=== PATIENT | male | born 1970 | race Caucasian/White ===

== ENCOUNTER 2024-01-06 16:56 | Inpatient (IN) | payer OTHER, SELFPAY ==
[2024-01-06] VITALS (9 sets, daily range): BP systolic 133–155; BP diastolic 72–86; PULSE 96–117; RESP 14–20; TEMP 36.4–37.6; O2SAT 96–99; BMI 31.3; BMI 31.0
--- NOTE | 2024-01-06 17:20 | EX.ED.VIS.UR ---
HPI HPI - URI History of Present Illness Chief Complaint: Chest Other Informant: patient and spouse/S.O. Onset/Context/Timing Onset: Weeks Context: Gradual Onset Timing: Continuous Current Severity: Mild Maximum Severity: Mild Narrative Narrative: 53-year-old male history of prior kidney stone hypertension. Recently was treated for pneumonia by the nurse practitioner Carmenza Mcnally at the local [facility]. Patient was on Levaquin which she finished on Friday. States has been feeling better. Initially had a chest x-ray with a negative CAT scan with IV contrast. Found a upper lobe pneumonia. Says he feels a lot better. Today the CAT scan I called him and told him to go to the nearest ER. He does not know the CAT scan results. The doctor's office is now close have already tried to reach him to get the results. We also looked on my chart on the patient's computer with him and it has not been officially transcribed so there is no results on the computer. Prior similar symptoms: Yes Recent Illness/Hospitalization: No ROS ROS ED ROS Narrative Cough. Constitutional Constitutional ED: Denies chills or fever(s) Eyes Eyes: Denies blurry vision ENT ENT ED: Denies ear pain Cardiovascular Cardiovascular: Denies chest pain Respiratory/Chest Respiratory/Chest: Reports cough Gastrointestinal Gastrointestinal: Denies abdominal pain Genitourinary Genitourinary ED: Denies dysuria or hematuria Musculoskeletal Musculoskeletal: Denies arthralgias Integumentary Denies abscess Neurologic Neurologic: Denies headache(s) Psychiatric Psychiatric: Denies anxiety or depression Endocrine Endocrinology: Denies cold intolerance Hematologic/Lymphatic Hematologic/Lymphatic: Denies easy bleeding or easy bruising Allergic/Immunologic Allergic/Immunologic ED: Denies mouth swelling, tongue swelling or urticaria PFSH PFSH Home Medications ?Medication ?Instructions ?Recorded ?Last Taken ?Type omeprazole 20 mg capsule,delayed 20 mg PO DAILY 11/23/15 Unknown History release oxycodone-acetaminophen 5 mg-325 1 - 2 tab PO Q4H PRN PRN Pain #20 11/23/15 Unknown Rx mg tablet tabs tamsulosin 0.4 mg capsule 0.4 mg PO DAILY 5 days 11/23/15 Unknown Rx valsartan 160 1 tab PO DAILY 11/23/15 Unknown History mg-hydrochlorothiazide 25 mg tablet (Diovan HCT) Allergy/AdvReac Type Severity Reaction Status Date / Time prednisone Allergy Mild Nausea/Vom/ Verified 01/06/24 16:57 Diarrhea acetaminophen (From Vicodin) AdvReac Hives Verified 01/06/24 16:57 hydrocodone (From Vicodin) AdvReac Hives Verified 01/06/24 16:57 Social History Smoking Status: Never smoker EXAM Physical Exam Narrative Exam Narrative: 53-year-old male no acute distress vital signs stable. Temperature nine 9.6. Pulse ox 96% on room air no hypoxia. H EENT exam unremarkable. Mytrex membranes. Neck nontender no lymphadenopathy. Patient does not look septic or toxic. No distress. at bedside. Lungs clear to auscultation bilaterally. No rales, rhonchi or wheezing. Equal symmetric. Heart tachycardic 110 no murmur. Chest wall ribs nontender. Abdomen soft nontender. Back nontender. Moving all 4 extremities. Nontender no edema. Normal motor strength and range of motion. Patient awake alert no focal motor deficits. Answering questions and following commands. Const Vital Signs: 01/06/24 16:58 01/06/24 17:00 01/06/24 17:16 Temperature 99.6 F H 99.6 F H Temperature Source Oral Oral Pulse Rate 117 H 117 H Respiratory Rate 20 H 20 H Respiratory Effort Normal Non-Labored Respiratory Depth Normal Respiratory Pattern Normal Blood Pressure 155/84 H 155/84 H Blood Pressure Mean 107 107 Pulse Ox 96 96 Oxygen Delivery Method Room Air Room Air Room Air 01/06/24 18:00 Temperature 99.5 F H Temperature Source Oral Pulse Rate 102 H Respiratory Rate 18 Respiratory Effort Respiratory Depth Respiratory Pattern Blood Pressure 136/76 H Blood Pressure Mean 96 Pulse Ox 96 Oxygen Delivery Method Room Air Positive well nourished and well developed; Negative for cachectic or contractures General Appearance ED: well developed and NAD; Negative for cachectic, contractures, cyanotic, diaphoretic or pallor Nutritional Appearance: Negative for cachectic HEENT Reports moist mucous membranes normocephalic and atraumatic Throat: posterior oropharynx normal Eyes PERRL and EOMs intact bilaterally General Eye ED: Negative for pale conjunctiva Neck no lymphadenopathy, supple, no meningeal signs and no JVD Resp normal respiratory effort and clear to auscultation bilaterally Effort and Inspection: Negative for retractions Auscultation: Negative for rales, rhonchi, wheezes or diminished lung sounds Cardio S1 normal heart sound, S2 normal heart sound and no murmurs Rate: tachycardic Rhythm: regular rhythm GI non-distended and no masses Inspection: Negative for abdominal distention Palpation: soft; Negative for tender or guarding Back/Spine no CVA tenderness and normal ROM Extremity normal to inspection and full ROM General Extremety ED: Negative for cyanosis or tenderness General Extremity: Negative for cyanosis Neuro oriented x3 and CN's II-XII intact bilaterally Sensorium / Orientation: oriented to person, oriented to place and oriented to time Motor Exam: strength 5/5 throughout Psych mental status grossly normal Skin General Skin Exam: Negative for jaundice or pallor Lesions: no lesions Rashes: no rashes MDM MDM MDM Narrative Medical decision making narrative: 53-year-old male status post pneumonia on CAT scan and chest x-ray several weeks ago. Repeat CAT scan today had some type abnormal finding which we do not have the results and we cannot find it on my chart as of yet. Screening labs to be obtained. Repeat exam patient is doing well at 6:20 PM. I went over the x-ray results with him. He has a right upper lung abscess/pneumonia. Our interventional radiologist is not available tomorrow. I have already spoken the [facility] working on a transfer. The patient be started on IV Zosyn. Oral potassium. I spoke to our hospitalist who also spoke to our psychologist developmental. They are comfortable the patient be admitted here. Started on IV antibiotics. If he does not improve then they can either consider a drain or CT surgery consultation but he does not need to be transferred at this time. I have discussed all this with the patient and significant other bedside. Patient prefers to stay and not be transferred so he is comfortable with the plan. History & Record Review Discussion w/independent historian: Patient Additional record(s) reviewed:: Prior inpatient record, Prior outpatient record and Prior ED visit Lab Data Attestation: I reviewed the patient's lab results. Lab results narrative: CBC shows white count 13. H&H 10.32. Platelets 514. No old labs available for comparison. Electrolytes show potassium 2.9. Gap 7. BUN of 20 creatinine 0.9. Glucose 113. Chest x-ray right upper lobe lung abscess. Labs: Laboratory Results - last 24 hr 01/06/24 17:45 WBC 13.0 H RBC 3.56 L Hgb 10.8 L Hct 32.0 L MCV 89.9 MCH 30.3 MCHC 33.8 RDW Std Deviation 42.4 RDW Coeff of [place] 12.8 Plt Count 514 H MPV 8.7 Immature Gran % (Auto) 0.500 Neut % (Auto) 68.5 Lymph % (Auto) 22.3 [place] % (Auto) 7.3 Eos % (Auto) 1.0 Baso % (Auto) 0.4 Absolute Neuts (auto) 8.9 H Absolute Lymphs (auto) 2.90 Nucleated RBC % 0 Sodium 137 Potassium 2.9 L Chloride 102 Carbon Dioxide 28.0 Anion Gap 7 BUN 20 H Creatinine 0.99 Estim Creat Clear Calc 101.79 Est GFR (MDRD) Af Amer 101 Est GFR (MDRD) Non-Af 84 BUN/Creatinine Ratio 20.2 H Glucose 113 H Calcium 9.0 Radiography Chest X-Ray - ED: 2 View, Read by ED Physician, Normal, Heart, Mediastinum, Bony Structures and Right Infiltrate (Right upper lobe pneumonia/lung abscess. Air-fluid level.) Diagnostic Testing: Clinical Impression(s) from Imaging Studies Chest X-Ray 01/06/24 17:48 IMPRESSION: Findings consistent with right upper lobe pneumonia with possible pneumatocele or abscess. CT recommended for further evaluation. Electronically Signed: Bryan Calloway MD at 18:19 EST Reading Location ID and State: [address] [place] [address] Tel , Service support , Chest x-ray, 2 views,, AP and lateral, interpreted by myself and the radiologist shows right upper lobe pneumonia. Suspect abscess with air-fluid level. Normal cardiac silhouette. Discharge Plan Triage Chief Complaint: Chest Other Other Complaint: Shortness of Breath ED Provider: Chris Montes De Oca Dx/Rx/DC Orders Clinical Impression: Abscess of right lung with pneumonia, Leukocytosis, Acute hypokalemia Prescriptions: No Action omeprazole 20 MG capsule 20 mg PO DAILY valsartan-hydrochlorothiazide [Diovan HCT] 1 TABLET tablet 1 tab PO DAILY oxycodone-acetaminophen 1 TABLET tablet 1 - 2 tab PO Q4H PRN PRN (Reason: Pain) Qty: 20 0RF tamsulosin 0.4 MG capsule 0.4 mg PO DAILY 5 Days 0RF Primary Care Provider: Mendel Rashid Referrals: Mendel Rashid MD [Primary Care Provider] - Print Language: Luxembourger Disposition Disposition: Acute Care [facility]
--- NOTE | 2024-01-06 17:48 | RAD_ITS ---
STUDY: X-RAY CHEST REASON FOR EXAM: Male, 53 years old. s/p pneumonia TECHNIQUE: PA and lateral COMPARISON: None. FINDINGS: Diffuse infiltration is noted in the right upper lobe with possible cavitation and air-fluid level. There is no demonstrated pleural abnormality. Normal size heart. Normal mediastinum and cadence. Normal visualized pulmonary arteries. Normal visualized aortic arch and descending thoracic aorta. Dorsal spine demonstrates degenerative change. Normal visualized ribs, clavicles, and shoulders. There is no demonstrated abnormality of the visualized soft tissue structures of the upper abdomen. RAD/Chest PA and Lateral IMPRESSION: Findings consistent with right upper lobe pneumonia with possible pneumatocele or abscess. CT recommended for further evaluation. Electronically Signed: Bryan Calloway MD at 18:19 EST ,
[2024-01-06 18:10] LABS: Anion Gap 7 (5-15); BUN 20 mg/dL (7-18); BUN/Creat Ratio 20.2 RATIO (10-20); Chloride 102 mmol/L (98-107); Creatinine, Serum 0.99 mg/dL (0.70-1.30); EST Glomerular Filtration Rate 84 mL/min (>60); Est Glom Filt Rate - Afr Amer 101 mL/min (>60); Estimated Creatinine Clearance 101.79 ml/min; Glucose 113 mg/dL (74-106); Potassium 2.9 mmol/L (3.5-5.1); Sodium Level 137 mmol/L (136-145)
[2024-01-06 18:11] LABS: Absolute Neutrophil Count 8.9 X10^3/uL (2.0-7.7); Basophil# 0.05 X10^3/uL; Basophil% 0.4 % (0-1); Eosinophil# 0.13 X10^3/uL; Hemoglobin 10.8 g/dL (13.0-16.5); Lymphocyte % 22.3 % (19-41); Mean Corp Hgb Conc 33.8 g/dL (32-36); Mean Corpuscular Hgb 30.3 pg (27.0-32.0); Mean Corpuscular Volume 89.9 fL (80-94); Mean Platelet Vol. 8.7 fl (6.2-12.0); Monocyte# 0.95 X10^3/uL; Monocyte% 7.3 % (0-10); NRBC Flagged by Analyzer 0 % (0-5); Neutrophil # 8.94 X10^3/uL (2.7-7.7); Neutrophil % 68.5 % (47-70); Platelet Count 514 K/mm3 (150-450); RBC Distribution Width CV 12.8 % (11.6-14.6); RBC Distribution Width SD 42.4 fl (35.1-43.9); Red Blood Count 3.56 M/mm3 (4.6-6.2)
[2024-01-06] MEDS: Piperacil/Tazobactam 4.5 GM in 0.9% Normal Saline (100mL MB+) 100 ML IV (18:35)
--- NOTE | 2024-01-06 19:03 | HP.PCM.HOS_ITS ---
HPI - General General Date of Admission: 01/06/24 Date of Service: 01/06/24 Chief Complaint: Abnormal CT of the chest HPI Narrative ANTHONY SMITH, is a 53 M who presented to the emergency department at [facility] on 01/06/[address] of the chest. Patient started feeling poorly about 3-4 weeks ago at which time he was seen by his primary care physician after about 7 to 10 days of symptoms. He was treated with supportive medication and is it with thought that he might have a virus however he did not improve and actually started worsening with malaise, weakness, fever, chills, and productive cough so he went back and saw Carmenza Nichols NP at [facility] at which time he was placed on Levaquin for 10 days. He completed his course on Friday. He had initial CAT scan done on 23 December which showed a right upper lobe infiltrate. Repeat imaging was done after his antibiotics were completed and he now shows a right upper lobe lung abscess. Patient states that he has minimal past medical history. He admits that he has obstructive sleep apnea but is not compliant with CPAP as he does not tolerate it. He has no known immunodeficiency and states he actually feels better now than he had previously. Patient states up until about the last 2 days he was not able to lie flat and when he take a deep breath he had significant cough with sputum production. He states that is all resolved at this point. Patient denies any symptoms consistent with aspiration Vital signs on presentation showed a temperature of 99.6, heart rate 117, respiratory rate 20, blood pressure was 155/84 and pulse ox was 96% on room air. CBC shows a leukocytosis with a white count of 13.0, mild anemia with a hemoglobin of 10.8, thrombocytosis with a platelet count of 502,000. Differential is unremarkable. Chemistry panel shows hyponatremia with a potassium of 2.9 but was otherwise fairly unremarkable. Chest x-ray shows findings consistent with a right upper lobe pneumonia with possible pneumatocele versus abscess. I was able to review the CT from earlier today and a distinct right upper lobe abscess is noted that is reported to be 7 cm and has significant air-fluid level present. Air-fluid level is not there on previous imaging from 12/24/2023. In the emergency department he was treated with Zosyn and his potassium was replaced. I did discuss the case with Dr. Hernández from pulmonary medicine and he indicated that no emergent CT surgery would be required or drainage and he could be admitted here with probable long-term antibiotics and follow-up CT as an outpatient after antibiotics have been completed. If that does not resolve his symptoms, then he would require CT surgery evaluation. He will be admitted here with a consultation to pulmonary medicine. [facility] Medical History HTN (hypertension) GERD (gastroesophageal reflux disease) BPH (benign prostatic hyperplasia) Kidney stones Former smoker CPAP (continuous positive airway pressure) dependence Home Medications ?Medication ?Instructions ?Recorded ?Last Taken ?Type omeprazole 20 mg capsule,delayed 20 mg PO DAILY 11/23/15 Unknown History release hydrochlorothiazide 25 mg tablet 25 mg PO DAILY 01/06/24 Unknown History valsartan 320 1 tab PO DAILY 01/06/24 Unknown History mg-hydrochlorothiazide 25 mg tablet Allergy/AdvReac Type Severity Reaction Status Date / Time prednisone Allergy Mild Nausea/Vom/ Verified 01/06/24 16:57 Diarrhea acetaminophen (From Vicodin) AdvReac Hives Verified 01/06/24 16:57 hydrocodone (From Vicodin) AdvReac Hives Verified 01/06/24 16:57 no significant family history no surgical history Social History (Updated 01/06/24 @ 20:[address] Ayah Velasco DO) household members: spouse housing: house current occupational status: employed current occupation: Has his own business Smoking Status: Former smoker pack-years: 10 alcohol intake: never substance use type: does not use ROS Constitutional Constitutional: Reports fatigue, fever(s) and malaise; Denies anorexia, change in weight, chills, night sweats, weakness or other Eyes Eyes: Denies blurry vision, change in eye color, change in vision, discharge from eye(s), double vision, erythema, eye pain, loss of vision or other ENT HEENT: Denies abnormal hearing, dysphagia, ear pain, epistaxis, headache(s), hearing loss, nasal congestion, nasal discharge, post nasal drip, sinus pressure, sore throat or other Cardiovascular Cardiovascular: Denies chest pain, claudication, dyspnea on exertion, edema, lightheadedness, orthopnea, palpitations, paroxysmal nocturnal dyspnea, rapid heart rate, syncope or other Respiratory/Chest Respiratory/Chest: Reports cough, dyspnea and productive cough; Denies excessive phlegm production, hemoptysis, shortness of breath at rest, shortness of breath with exertion, wheezing or other Gastrointestinal Gastrointestinal: Denies abdominal pain, coffee ground emesis, constipation, diarrhea, dyspepsia, hematemesis, hematochezia, loose stools, melena, nausea, vomiting or other Genitourinary Genitourinary: Denies burning urination, difficulty urinating, dysuria, hematuria, nocturia, urinary frequency, urinary hesitancy, urinary incontinence, urinary urgency or other Musculoskeletal Musculoskeletal: Denies arthralgias, back pain, joint pain, joint stiffness, joint swelling, myalgias, neck pain or other Neurologic Neurologic: Denies abnormal gait, abnormal speech, confusion, disequilibrium, dizziness, focal weakness, headache(s), numbness, paresthesias, seizure-like activity, seizures, syncope, tingling, tremor(s) or other Psychiatric Psychiatric: Denies anxiety, depression, homicidal ideation, suicidal ideation or other Endocrine Endocrinology: Denies change in body appearance, cold intolerance, excessive sweating, heat intolerance, polydipsia, polyuria or other Hematologic/Lymphatic Hematologic/Lymphatic: Denies anemia, easy bleeding, easy bruising, lymphadenopathy or other Allergic/Immunologic Allergic/Immunologic: Denies rhinitis, hives, eczemia, asthma or other Vital Signs Vital Signs Vital Signs: 01/06/24 16:58 01/06/24 17:00 01/06/24 17:16 Temperature 99.6 F H 99.6 F H Temperature Source Oral Oral Pulse Rate 117 H 117 H Respiratory Rate 20 H 20 H Respiratory Effort Normal Non-Labored Respiratory Depth Normal Respiratory Pattern Normal Blood Pressure 155/84 H 155/84 H Blood Pressure Mean 107 107 Pulse Ox 96 96 Oxygen Delivery Method Room Air Room Air Room Air 01/06/24 18:00 Temperature 99.5 F H Temperature Source Oral Pulse Rate 102 H Respiratory Rate 18 Respiratory Effort Respiratory Depth Respiratory Pattern Blood Pressure 136/76 H Blood Pressure Mean 96 Pulse Ox 96 Oxygen Delivery Method Room Air Weight Weight: 99 kg Body Mass Index (BMI) 31.3 Physical Exam Const alert, oriented x3, no apparent distress, healthy appearing and well nourished Constitutional Narrative: Obese, middle-aged, white male, lying in bed, appears comfortable, nontoxic General Appearance: cooperative HEENT normocephalic, head/scalp atraumatic, hearing grossly normal bilaterally and moist oral mucous membranes HEENT Narrative: Mallampati 3, no thrush Eyes conjunctivae normal Eyes Narrative: No scleral icterus Resp normal respiratory effort, no retractions, no use of accessory muscles and clear to auscultation bilaterally Resp Narrative: No bronchospasm with deep breathing Auscultation: Negative for rales, rhonchi or wheezes Cardio regular rate, regular rhythm, S1 normal heart sound, S2 normal heart sound, no murmurs, no rub, no gallops and no clicks GI normal to inspection, nondistended, normoactive bowel sounds, soft to palpation and non-tender Extremity no clubbing, cyanosis or edema Extremity Narrative: Pedal pulses are 2+ Neuro oriented x3, moves all extremities and no focal motor deficits Speech: speech normal Psych affect normal Psych Narrative: Very pleasant, obviously frustrated, appears comfortable Results Lab / Micro Data 01/06/24 17:45 01/06/24 17:45 Labs: Laboratory Results - last 24 hr 01/06/24 17:45: WBC 13.0 H, RBC 3.56 L, Hgb 10.8 L, Hct 32.0 L, MCV 89.9, MCH 30.3, MCHC 33.8, RDW Std Deviation 42.4, RDW Coeff of [place] 12.8, Plt Count 514 H, MPV 8.7, Immature Gran % (Auto) 0.500, Neut % (Auto) 68.5, Lymph % (Auto) 22.3, [place] % (Auto) 7.3, Eos % (Auto) 1.0, Baso % (Auto) 0.4, Absolute Neuts (auto) 8.9 H, Absolute Lymphs (auto) 2.90, Nucleated RBC % 0, Sodium 137, Potassium 2.9 L, Chloride 102, Carbon Dioxide 28.0, Anion Gap 7, BUN 20 H, Creatinine 0.99, Estim Creat Clear Calc 101.79, Est GFR (MDRD) Af Amer 101, Est GFR (MDRD) Non-Af 84, BUN/Creatinine Ratio 20.2 H, Glucose 113 H, Calcium 9.0 Imaging Radiology Impression Chest X-Ray 01/06/24 17:48 IMPRESSION: Findings consistent with right upper lobe pneumonia with possible pneumatocele or abscess. CT recommended for further evaluation. Electronically Signed: Bryan Calloway MD at 18:19 EST , Assessment & Plan Assessment/Plan (1) Acute hypokalemia: (2) Leukocytosis: (3) Abscess of right lung with pneumonia: PLAN: Plan Pneumonia with right upper lobe lung abscess -It sounds the patient is clinically improving -Organism was never identified -Will try to obtain sputum culture if possible however would not be surprised if it is sterile due to his antibiotic use -Patient was on a 10-day course of Levaquin with subsequent imaging showing now a 7 cm right upper lobe abscess where his previous imaging only showed an area of loculation -Start vancomycin and Zosyn -Start Mucinex 1200 p.o. twice daily -Incentive spirometry -Acapella -Scheduled and as needed nebulizers -Pulmonary medicine consult -Infectious disease consult -Anticipate long-term antibiotics with outpatient follow-up imaging and if not improved with that may need CT surgery evaluation Hypokalemia -Potassium replaced with 60 mEq p.o. potassium -Repeat in a.m. -Check a.m. magnesium level Leukocytosis -Secondary to see above -Antibiotics as noted above -Repeat lab in a.m. MONTEZ -Patient states he does not tolerate his mask Essential hypertension -Continue home medication GERD -Continue home PPI History of tobacco abuse -Patient with about a [id number] history -Quit about 10 years ago -Encouraged ongoing cessation Obesity -BMI 31.3 -Recommend weight loss -Complicates treatment, prognosis, outcomes DVT prophylaxis -Subcu Lovenox daily CODE STATUS -Full code Charges/Coding Visit Charges Inpatient E&M: 71305 Init Hosp L2
[2024-01-06] MEDS: Potassium Chloride Oral Tablet 20 MEQ 60 MEQ PO (20:17)
[2024-01-06] MEDS: guaiFENesin 1,200 MG Tablet 1200 MG PO (21:12)
[2024-01-06] MEDS: Azithromycin 500 MG in Dextrose 5%-Water (250mL Bag) 250 ML 250 MG IV (21:12)
[2024-01-06] MEDS: Ipratropium/Albuterol Sulfate 3 ML AMPUL.NEB INHALATION (22:22)
[2024-01-06] MEDS: Vancomycin HCl 2,000 MG in 0.9% Normal Saline (500mL Bag) 500 ML 250 MG IV (22:43)
--- NOTE | 2024-01-06 23:05 | PCM.RX.CS ---
Consult Antibiotic Management Pharmacy has been consulted to manage selected antibiotic: Vancomycin Type of Intervention Type of Consult: New start Labs Labs: Sodium 137 mmol/L (136-145) 01/06/24 17:45 Potassium 2.9 mmol/L (3.5-5.1) L 01/06/24 17:45 Chloride 102 mmol/L (98-107) 01/06/24 17:45 Carbon Dioxide 28.0 mmol/L (21.0-32.0) 01/06/24 17:45 Anion Gap 7 (5-15) 01/06/24 17:45 BUN 20 mg/dL (7-18) H 01/06/24 17:45 Creatinine 0.99 mg/dL (0.70-1.30) 01/06/24 17:45 Est GFR (MDRD) Af Amer 101 mL/min (>60) 01/06/24 17:45 Est GFR (MDRD) Non-Af 84 mL/min (>60) 01/06/24 17:45 BUN/Creatinine Ratio 20.2 RATIO (10-20) H 01/06/24 17:45 Glucose 113 mg/dL (74-106) H 01/06/24 17:45 Dosing Weight Weight used for dosin.2 kg Estimated Creatinine Clearance Estimated Creatinine Clearance: 101.79 Goal Trough Goal Trough: 15-20 mcg/mL Pharmacy Plan for Drug Dosing Pharmacy Plan for Drug Dosing: Pharmacy Service will continue to monitor and adjust dosing as required. 2000MG LOADING DOSE GIVEN 01/05 @ 2229. START 1250MG Q8H AND TROUGH PRIOR TO 4TH DOSE Follow-Up Labs Follow-Up Labs: Trough: Vancomycin Date/Time Labs Ordered Labs to be done on [date and time ordered]: 01/06 @ 2229
[2024-01-07] VITALS (9 sets, daily range): BP systolic 123–156; BP diastolic 72–79; PULSE 87–100; RESP 15–18; TEMP 36.6–37.1; O2SAT 97–100
[2024-01-07 00:57] LABS: HIV - WCH Non-Reactive (Nonreactive)
[2024-01-07] MEDS: Piperacil/Tazobactam 3.375 GM in 0.9% Normal Saline (50mL MB+) 50 ML IV ×2 (04:49→13:28)
[2024-01-07] MEDS: Ipratropium/Albuterol Sulfate 3 ML AMPUL.NEB INHALATION ×5 (06:59→23:04)
[2024-01-07 07:09] LABS: Absolute Lymphocyte Count 2.58 X10^3/uL (0.83-4.51); Absolute Neutrophil Count 6.4 X10^3/uL (2.0-7.7); Basophil# 0.04 X10^3/uL; Basophil% 0.4 % (0-1); Eosinophil# 0.23 X10^3/uL; Eosinophils% 2.3 % (0-5); Hematocrit 32.1 % (40-54); Hemoglobin 10.7 g/dL (13.0-16.5); Lymphocyte # 2.58 X10^3/ul (0.83-4.51); Lymphocyte % 25.8 % (19-41); Mean Corp Hgb Conc 33.3 g/dL (32-36); Mean Corpuscular Hgb 29.7 pg (27.0-32.0); Mean Corpuscular Volume 89.2 fL (80-94); Mean Platelet Vol. 8.7 fl (6.2-12.0); Monocyte# 0.66 X10^3/uL; Monocyte% 6.6 % (0-10); NRBC Flagged by Analyzer 0 % (0-5); Neutrophil # 6.43 X10^3/uL (2.7-7.7); Neutrophil % 64.3 % (47-70); Platelet Count 474 K/mm3 (150-450); RBC Distribution Width CV 12.8 % (11.6-14.6); RBC Distribution Width SD 41.7 fl (35.1-43.9)
[2024-01-07 07:34] LABS: ALB/GLOB Ratio 0.6 RATIO (0.9-2.4); AST(SGOT) 26 U/L (15-37); Alanine Aminotransfer ALT/SGPT 60 U/L (16-61); Albumin, Serum 2.4 g/dL (3.2-5.0); Alkaline Phosphatase 91 U/L (45-117); Anion Gap 6 (5-15); BUN 14 mg/dL (7-18); BUN/Creat Ratio 16.7 RATIO (10-20); Calcium,Total 8.4 mg/dL (8.5-10.1); Chloride 106 mmol/L (98-107); Creatinine, Serum 0.84 mg/dL (0.70-1.30); EST Glomerular Filtration Rate 101 mL/min (>60); Est Glom Filt Rate - Afr Amer 123 mL/min (>60); Estimated Creatinine Clearance 119.51 ml/min; Globulin 4.2 g/dL (2.2-4.2); Glucose 109 mg/dL (74-106); Magnesium 2.1 mg/dL (1.6-2.6); Phosphorus 3.3 mg/dL (2.5-4.9); Potassium 3.1 mmol/L (3.5-5.1); Protein, Total 6.6 g/dL (6.4-8.2); Sodium Level 138 mmol/L (136-145)
[2024-01-07] MEDS: Losartan Potassium 100 MG Tablet PO (07:59)
[2024-01-07] MEDS: Pantoprazole Sodium 20 MG Tablet PO (07:59)
[2024-01-07] MEDS: guaiFENesin 1,200 MG Tablet 1200 MG PO ×2 (07:59→20:30)
[2024-01-07] MEDS: hydroCHLOROthiazide 25 MG Tablet PO (08:00)
[2024-01-07] MEDS: Enoxaparin 40 MG/0.4 ML Syringe SC (08:00)
[2024-01-07] MEDS: Vancomycin HCl 1,250 MG in 0.9% Normal Saline (250mL Bag) 250 ML 167 MG IV ×3 (08:27→23:43)
--- NOTE | 2024-01-07 08:30 | PN.HOSP_ITS ---
Reason for Visit Reason for Visit: Diagnoses Elevated white blood cell count, unspecified (01/06/24) Hypokalemia (01/06/24) Abscess of lung with pneumonia (01/06/24) Subjective Subjective Patient reports he is feeling much better today, no significant cough, no increasing shortness of breath. Objective Data Objective Data Vital Signs: Vital Signs Temp Pulse Resp BP Pulse Ox O2 Del Method 98.7 F 90 18 123/79 H 99 Room Air 01/07/24 02:56 01/07/24 07:00 01/07/24 07:00 01/07/24 02:56 01/07/24 07:00 01/07/24 07:53 Oxygen Delivery Method Room Air Weight: 98.2 kg Body Mass Index (BMI) 31.0 Intake & Output: Intake and Output for Last 24 Hours 01/05/24 01/06/24 01/07/24 23:59 23:59 23:59 Intake Total 835 / 835 600 / 600 Output Total 500 / 500 Balance 335 / 335 600 / 600 Lab / Micro Data 01/07/24 06:40 01/07/24 06:40 Labs: Laboratory Results - last 24 hr 01/06/24 17:45: WBC 13.0 H, RBC 3.56 L, Hgb 10.8 L, Hct 32.0 L, MCV 89.9, MCH 30.3, MCHC 33.8, RDW Std Deviation 42.4, RDW Coeff of [place] 12.8, Plt Count 514 H, MPV 8.7, Immature Gran % (Auto) 0.500, Neut % (Auto) 68.5, Lymph % (Auto) 22.3, [place] % (Auto) 7.3, Eos % (Auto) 1.0, Baso % (Auto) 0.4, Absolute Neuts (auto) 8.9 H, Absolute Lymphs (auto) 2.90, Nucleated RBC % 0, Sodium 137, Potassium 2.9 L, Chloride 102, Carbon Dioxide 28.0, Anion Gap 7, BUN 20 H, Creatinine 0.99, Estim Creat Clear Calc 101.79, Est GFR (MDRD) Af Amer 101, Est GFR (MDRD) Non-Af 84, BUN/Creatinine Ratio 20.2 H, Glucose 113 H, Calcium 9.0 01/06/24 22:32: HIV 1&2 Antibody Non-Reactive 01/07/24 06:40: WBC 10.0, RBC 3.60 L, Hgb 10.7 L, Hct 32.1 L, MCV 89.2, MCH 29.7, MCHC 33.3, RDW Std Deviation 41.7, RDW Coeff of [place] 12.8, Plt Count 474 H, MPV 8.7, Immature Gran % (Auto) 0.600, Neut % (Auto) 64.3, Lymph % (Auto) 25.8, [place] % (Auto) 6.6, Eos % (Auto) 2.3, Baso % (Auto) 0.4, Absolute Neuts (auto) 6.4, Absolute Lymphs (auto) 2.58, Nucleated RBC % 0, Sodium 138, Potassium 3.1 L , Chloride 106, Carbon Dioxide 26.0, Anion Gap 6, BUN 14, Creatinine 0.84, Estim Creat Clear Calc 119.51, Est GFR (MDRD) Af Amer 123, Est GFR (MDRD) Non-Af 101, BUN/Creatinine Ratio 16.7, Glucose 109 H, Calcium 8.4 L, Phosphorus 3.3, Magnesium 2.1, Total Bilirubin 0.40, AST 26, ALT 60, Alkaline Phosphatase 91, Total Protein 6.6, Albumin 2.4 L, Globulin 4.2, Albumin/Globulin Ratio 0.6 L Micro: Microbiology 01/06/24 22:52 Urine, Clean Catch Legionella Antigen - Final 01/06/24 22:52 Urine, Clean Catch Streptococcus pneumoniae Antigen (M - Final Radiography Diagnostic Testing: Radiology Impression Chest X-Ray 01/06/24 17:48 IMPRESSION: Findings consistent with right upper lobe pneumonia with possible pneumatocele or abscess. CT recommended for further evaluation. Electronically Signed: Bryan Calloway MD at 18:19 EST , Physical Exam Narrative General: Alert, oriented, no apparent distress HEENT: Atraumatic, normocephalic Eyes: Anicteric, normal conjunctiva, extraocular movements grossly intact Neck: Supple Respiratory: no overt wheezes, rhonchi's, crackles, normal respiratory effort Cardiovascular: Regular rate and rhythm GI: Soft, nontender, nondistended Extremities: No edema Musculoskeletal: Moving all extremities Neuro: No overt focal neurological deficits Skin: No rashes appreciated Psych: Cooperative Assessment & Plan Assessment/Plan (1) Abscess of right lung with pneumonia: PLAN: Plan #RUL pneumonia with abscess -CT done December 23 showed right upper lobe infiltrate and patient completed 10 days of Levaquin however repeat imaging shows right upper lobe lung abscess -Symptoms have been improving however CT does show 7 cm right upper lobe abscess with significant air-fluid level present with no air-fluid level on 12/24/2023 -Patient started on Zosyn in the ED and case was discussed with pulmonary medicine who did not feel any emergent CT surgery would be required or drainage and the patient was okay to be admitted to our institution with probable long- term antibiotics and follow-up CT as outpatient after antibiotics been completed -Pulmonology consultation placed as well as infectious disease consultation -Patient started on vancomycin, Zosyn, azithromycin -Obtain sputum culture if able -Mucinex -Incentive spirometer -Joseph -01/06: Patient evaluated by infectious disease, patient continued on vancomycin and Unasyn and plan will be home on prolonged course of p.o. Doxy and Augmentin and will need repeat imaging near end of antibiotic course to prove resolution. Sputum culture if able however patient reports he is not bringing anything up at present. Pulmonology also evaluated, will need to follow-up in outpatient basis for repeat chest imaging #GERD -Continue PPI #Hypertension -Patient's hydrochlorothiazide was continued and ARB was continued as well #MONTEZ -Patient noncompliant with CPAP #Hypokalemia -Replace -Repeat in the AM #DVT ppx: Lovenox subcu Bree Wilson MD Time spent in the patient's overall evaluation, decision-making process, review of diagnostic data, adjustment of management, discussion with other providers, nursing and ancillary staff involved in patient's care documentation, 37 Minutes Charges/Coding Visit Charges Inpatient E&M: 22530 Subs Hosp L2
[2024-01-07] MEDS: Potassium Chloride Oral Tablet 20 MEQ 40 MEQ PO (08:50)
--- NOTE | 2024-01-07 09:47 | CON.PCM.CC_ITS ---
Assessment & Plan Assessment/Plan (1) Abscess of right lung with pneumonia: PLAN: Plan RECOMMENDATIONS: 1. Continue empiric IV antimicrobial therapy. 2. Obtain blood and sputum cultures. 3. Await ID recommendations regarding antimicrobial management. 4. The patient will ultimately require outpatient follow-up in the pulmonary medicine clinic after discharge for repeat chest imaging. IMPRESSIONS: 1. Right upper lobe pulmonary abscess The patient was initially diagnosed with pneumonia following CT imaging of the chest on December 23 and was treated with a 10-day course of Levaquin. He remains symptomatic. Follow-up chest imaging completed on the demonstrated an approximate 7 cm right upper lobe pulmonary abscess. The patient is currently stable from a respiratory perspective on room air. I agree with continuing empiric broad-spectrum antimicrobials for now. Infectious diseases consultation is pending. Will obtain blood and sputum culture. I do anticipate that the patient will require prolonged course of antimicrobials, with plans to obtain follow-up chest imaging after completion of his treatment course. This note was generated with [employer] dictation software. It may contain incorrect words, spelling, and punctuation that were not noted in checking the note before signing. HPI Consult Data Date of Consult: 01/07/24 HPI Narrative Reason for Consultation: Pulmonary abscess HPI Narrative: The patient is a 53-year-old male, with a history as outlined below, who presented to the emergency department on January 05 with shortness of breath and productive cough. The patient initially was seen by his PCP approximately 3 to 4 weeks ago with generalized malaise, which was felt to be secondary to a viral URI. Ultimately, the patient's symptoms did not improve and he was again seen by his provider at [facility] and placed on Levaquin for 10 days, which was completed on January 01. CT imaging of the chest completed on December 23 demonstrated a dense right upper lobe consolidation subsequent chest imaging from yesterday demonstrated a right upper lobe abscess with air-fluid level measuring approximately 7 cm in size. The patient denied any pre-existing lung conditions. He does not recall any overt aspiration events prior to the onset of his symptoms. He does have a remote smoking history, having quit completely in the early . On presentation to the emergency department, the patient was documented to have a low-grade fever and was notably tachycardic and tachypneic. The patient was otherwise hemodynamically stable. Laboratory evaluation for other white blood cell count of 13,000. Platelet count was elevated at 514,000. Chemistry profile was notable for a potassium of 2.9. Urine analysis was unremarkable. HIV screen was nonreactive. Strep and urine Legionella antigens were negative. MRSA screen is currently pending. The patient was started on broad-spectrum antimicrobials and admitted to the hospital for further management. In general, the patient reported that he feels significantly improved since being admitted to the hospital and placed on IV antibiotics. He stated that both his cough and sputum production have improved overnight. [facility] Medical History HTN (hypertension) GERD (gastroesophageal reflux disease) BPH (benign prostatic hyperplasia) Kidney stones Former smoker CPAP (continuous positive airway pressure) dependence Home Medications ?Medication ?Instructions ?Recorded ?Last Taken ?Type omeprazole 20 mg capsule,delayed 20 mg PO DAILY gerd 11/23/15 Unknown History release hydrochlorothiazide 25 mg tablet 25 mg PO DAILY bp 01/06/24 Unknown History valsartan 320 1 tab PO DAILY bp 01/06/24 Unknown History mg-hydrochlorothiazide 25 mg tablet Allergy/AdvReac Type Severity Reaction Status Date / Time prednisone Allergy Mild Nausea/Vom/ Verified 01/06/24 16:57 Diarrhea acetaminophen (From Vicodin) AdvReac Hives Verified 01/06/24 16:57 hydrocodone (From Vicodin) AdvReac Hives Verified 01/06/24 16:57 Family History no significant family his Surgical History no surgical history Social History (Updated 01/06/24 @ 20:[address] Ayah Velasco DO) household members: spouse housing: house current occupational status: employed current occupation: Has his own business Smoking Status: Former smoker pack-years: 10 alcohol intake: never substance use type: does not use ROS ROS Narrative 10 systems were reviewed with pertinent positives as noted in the HPI above. Physical Exam Const alert and no apparent distress General Appearance: cooperative HEENT normocephalic and head/scalp atraumatic Eyes PERRL, EOMs intact bilaterally and conjunctivae normal Neck supple General: trachea midline Chest inspection of chest normal Resp normal respiratory effort Auscultation: Negative for rales, rhonchi or wheezes Cardio regular rate and regular rhythm GI normal to inspection, nondistended, normoactive bowel sounds Extremity no clubbing, cyanosis or edema Skin no rashes or lesions noted Neuro CN's II-XII intact bilaterally, moves all extremities and no focal motor deficits Psych cooperative and affect normal Lab / Micro Data 01/07/24 06:40 01/07/24 06:40 Labs: Laboratory Results - last 24 hr 01/06/24 17:45: WBC 13.0 H, RBC 3.56 L, Hgb 10.8 L, Hct 32.0 L, MCV 89.9, MCH 30.3, MCHC 33.8, RDW Std Deviation 42.4, RDW Coeff of [place] 12.8, Plt Count 514 H, MPV 8.7, Immature Gran % (Auto) 0.500, Neut % (Auto) 68.5, Lymph % (Auto) 22.3, [place] % (Auto) 7.3, Eos % (Auto) 1.0, Baso % (Auto) 0.4, Absolute Neuts (auto) 8.9 H, Absolute Lymphs (auto) 2.90, Nucleated RBC % 0, Sodium 137, Potassium 2.9 L, Chloride 102, Carbon Dioxide 28.0, Anion Gap 7, BUN 20 H, Creatinine 0.99, Estim Creat Clear Calc 101.79, Est GFR (MDRD) Af Amer 101, Est GFR (MDRD) Non-Af 84, BUN/Creatinine Ratio 20.2 H, Glucose 113 H, Calcium 9.0 01/06/24 22:32: HIV 1&2 Antibody Non-Reactive 01/07/24 06:40: WBC 10.0, RBC 3.60 L, Hgb 10.7 L, Hct 32.1 L, MCV 89.2, MCH 29.7, MCHC 33.3, RDW Std Deviation 41.7, RDW Coeff of [place] 12.8, Plt Count 474 H, MPV 8.7, Immature Gran % (Auto) 0.600, Neut % (Auto) 64.3, Lymph % (Auto) 25.8, [place] % (Auto) 6.6, Eos % (Auto) 2.3, Baso % (Auto) 0.4, Absolute Neuts (auto) 6.4, Absolute Lymphs (auto) 2.58, Nucleated RBC % 0, Sodium 138, Potassium 3.1 L , Chloride 106, Carbon Dioxide 26.0, Anion Gap 6, BUN 14, Creatinine 0.84, Estim Creat Clear Calc 119.51, Est GFR (MDRD) Af Amer 123, Est GFR (MDRD) Non-Af 101, BUN/Creatinine Ratio 16.7, Glucose 109 H, Calcium 8.4 L, Phosphorus 3.3, Magnesium 2.1, Total Bilirubin 0.40, AST 26, ALT 60, Alkaline Phosphatase 91, Total Protein 6.6, Albumin 2.4 L, Globulin 4.2, Albumin/Globulin Ratio 0.6 L Micro: Microbiology 01/06/24 22:52 Urine, Clean Catch Legionella Antigen - Final 01/06/24 22:52 Urine, Clean Catch Streptococcus pneumoniae Antigen (M - Final Imaging Radiology Impression Chest X-Ray 01/06/24 17:48 IMPRESSION: Findings consistent with right upper lobe pneumonia with possible pneumatocele or abscess. CT recommended for further evaluation. Electronically Signed: Bryan Claloway MD at 18:19 EST Reading Location ID and State: [address] [place] [address] Tel , Service support , Charges/Coding Visit Charges Inpatient E&M: 06216 Init Hosp L3
--- NOTE | 2024-01-07 12:15 | CASEMGMT ---
RN?CM?TICKER WIRER?CM?to room to meet with patient for initial transition planning/care coordination?assessment.?RN?CM?introduced self and role at [facility].? Pt voices understanding and consents to?assessment?at this time.? Pt resting in bed in no distress at this time.? Pt is A/O at this time and answers all questions appropriately.?? Care providers, pharmacy, and demographics verified/updated at this time. PCP: Dr Rashid Specialists: none Preferred Pharmacy: [facility] Retail @ discharge. Otherwise, uses [facility] [place] Insurance: [facility] Prescription Benefit:?yes LNOK: , [employer]if[employer]. Father, Roque Living Arrangements: Lives w/ in one-story home. Independent. Pt and run 3 businesses. Transportation:?Pt states drives self and states no transportation concerns at this time.? also drives. DME: ? Denies using any DME and denies needs.? Pt has a CPAP, but states was not able to tolerate it and has not worn it for a long time . HHC/SNF: No hx of either. No needs identified. Pt wishes to return home and states has no concerns with going home at time of discharge.??CM?to follow for any discharge planning/needs.? Pt voices no concerns/needs at this time.? Advised pt to ask for?CM?if any questions/concerns/needs arise.? Voices understanding. PLAN:??Home ST eval pending. Follow for any recommendations. Lizette JULION?RN?CM
--- NOTE | 2024-01-07 13:51 | PCM.CONS.GEN ---
Assessment & Plan Assessment/Plan (1) Abscess of right lung with pneumonia: PLAN: Will narrow to vanc/unasyn. Plan on going home with long course po doxy and augmentin. Was on levaquin as outpt. Will need repeat imaging near end of abx course to prove resolution of abscess. Will check sputum cx and MRSA screen here, but cough and sputum are much improved already. Will follow, thank you HPI Consult Data Date of Consult: 01/07/24 HPI Narrative Reason for Consultation: abscess HPI Narrative: ANTHONY SMITH, is a 53 M with h/o MONTEZ, htn, BPH, presented 01/05 with 3-4 weeks of progressive dyspnea, cough with purulent sputum, fever, loss of appetite, fatigue. Saw PCP about 3 weeks ago, given supportive care, returned with worsened sx, had cxr/CT done, given 10 days levaquin 750mg bid. Abx finished 01/02/24. Had ongoing sx, CT repeated, showed abscess, admitted here on vanc/zosyn/azithro. Feeling much better today. Full ROS performed and neg except as noted above. [facility] Medical History HTN (hypertension) GERD (gastroesophageal reflux disease) BPH (benign prostatic hyperplasia) Kidney stones Former smoker CPAP (continuous positive airway pressure) dependence Home Medications ?Medication ?Instructions ?Recorded ?Last Taken ?Type omeprazole 20 mg capsule,delayed 20 mg PO DAILY gerd 11/23/15 Unknown History release hydrochlorothiazide 25 mg tablet 25 mg PO DAILY bp 01/06/24 Unknown History valsartan 320 1 tab PO DAILY bp 01/06/24 Unknown History mg-hydrochlorothiazide 25 mg tablet Allergy/AdvReac Type Severity Reaction Status Date / Time prednisone Allergy Mild Nausea/Vom/ Verified 01/06/24 16:57 Diarrhea acetaminophen (From Vicodin) AdvReac Hives Verified 01/06/24 16:57 hydrocodone (From Vicodin) AdvReac Hives Verified 01/06/24 16:57 Family History no significant family his Surgical History no surgical history Social History (Updated 01/06/24 @ 20:[address] Ayah Velasco, DO) household members: spouse housing: house current occupational status: employed current occupation: Has his own business Smoking Status: Former smoker pack-years: 10 alcohol intake: never substance use type: does not use Physical Exam Const alert, oriented x3 and no apparent distress General Appearance: cooperative HEENT normocephalic and head/scalp atraumatic Eyes PERRL and EOMs intact bilaterally Neck supple and No nodes Resp normal air movement and clear to auscultation bilaterally Cardio regular rate and regular rhythm GI soft to palpation, non-tender and non-distended Extremity General Extremity: Negative for edema Skin no rashes or lesions noted Neuro CN's II-XII intact bilaterally Lab / Micro Data Attestation: I reviewed the patient's lab results. 01/07/24 06:40 01/07/24 06:40 Labs: Laboratory Results - last 24 hr 01/06/24 17:45: WBC 13.0 H, RBC 3.56 L, Hgb 10.8 L, Hct 32.0 L, MCV 89.9, MCH 30.3, MCHC 33.8, RDW Std Deviation 42.4, RDW Coeff of [place] 12.8, Plt Count 514 H, MPV 8.7, Immature Gran % (Auto) 0.500, Neut % (Auto) 68.5, Lymph % (Auto) 22.3, [place] % (Auto) 7.3, Eos % (Auto) 1.0, Baso % (Auto) 0.4, Absolute Neuts (auto) 8.9 H, Absolute Lymphs (auto) 2.90, Nucleated RBC % 0, Sodium 137, Potassium 2.9 L, Chloride 102, Carbon Dioxide 28.0, Anion Gap 7, BUN 20 H, Creatinine 0.99, Estim Creat Clear Calc 101.79, Est GFR (MDRD) Af Amer 101, Est GFR (MDRD) Non-Af 84, BUN/Creatinine Ratio 20.2 H, Glucose 113 H, Calcium 9.0 01/06/24 22:32: HIV 1&2 Antibody Non-Reactive 01/07/24 06:40: WBC 10.0, RBC 3.60 L, Hgb 10.7 L, Hct 32.1 L, MCV 89.2, MCH 29.7, MCHC 33.3, RDW Std Deviation 41.7, RDW Coeff of [place] 12.8, Plt Count 474 H, MPV 8.7, Immature Gran % (Auto) 0.600, Neut % (Auto) 64.3, Lymph % (Auto) 25.8, [place] % (Auto) 6.6, Eos % (Auto) 2.3, Baso % (Auto) 0.4, Absolute Neuts (auto) 6.4, Absolute Lymphs (auto) 2.58, Nucleated RBC % 0, Sodium 138, Potassium 3.1 L, Chloride 106, Carbon Dioxide 26.0, Anion Gap 6, BUN 14, Creatinine 0.84, Estim Creat Clear Calc 119.51, Est GFR (MDRD) Af Amer 123, Est GFR (MDRD) Non-Af 101, BUN/Creatinine Ratio 16.7, Glucose 109 H, Calcium 8.4 L, Phosphorus 3.3, Magnesium 2.1, Total Bilirubin 0.40, AST 26, ALT 60, Alkaline Phosphatase 91, Total Protein 6.6, Albumin 2.4 L, Globulin 4.2, Albumin/Globulin Ratio 0.6 L Micro: Microbiology 01/07/24 08:30 Nasal Secretion MRSA (PCR) - Final 01/06/24 22:52 Urine, Clean Catch Legionella Antigen - Final 01/06/24 22:52 Urine, Clean Catch Streptococcus pneumoniae Antigen (M - Final Imaging Radiology Impression Chest X-Ray 01/06/24 17:48 IMPRESSION: Findings consistent with right upper lobe pneumonia with possible pneumatocele or abscess. CT recommended for further evaluation. Electronically Signed: Bryan Calloway MD at 18:19 EST Reading Location ID and State: [facility] / [place] Tel , Service support ,
[2024-01-07] MEDS: Ampicillin/Sulbactam 3 GM in 0.9% Normal Saline (100mL MB+) 100 ML IV ×2 (14:42→20:29)
[2024-01-07] MEDS: MELATONIN 3 MG TABLET PO (20:31)
[2024-01-07] MEDS: Azithromycin 500 MG in Dextrose 5%-Water (250mL Bag) 250 ML 250 MG IV (21:24)
[2024-01-07 23:25] LABS: Vancomycin, Trough Level 18.7 ug/mL (5.0-15.0)
--- NOTE | 2024-01-07 23:43 | PCM.RX.CS ---
Consult Antibiotic Management Pharmacy has been consulted to manage selected antibiotic: Vancomycin Type of Intervention Type of Consult: Follow-up Suspected Infection Suspected Infection: Pneumonia Labs Labs: Sodium 138 mmol/L (136-145) 01/07/24 06:40 Potassium 3.1 mmol/L (3.5-5.1) L 01/07/24 06:40 Chloride 106 mmol/L (98-107) 01/07/24 06:40 Carbon Dioxide 26.0 mmol/L (21.0-32.0) 01/07/24 06:40 Anion Gap 6 (5-15) 01/07/24 06:40 BUN 14 mg/dL (7-18) 01/07/24 06:40 Creatinine 0.84 mg/dL (0.70-1.30) 01/07/24 06:40 Est GFR (MDRD) Af Amer 123 mL/min (>60) 01/07/24 06:40 Est GFR (MDRD) Non-Af 101 mL/min (>60) 01/07/24 06:40 BUN/Creatinine Ratio 16.7 RATIO (10-20) 01/07/24 06:40 Glucose 109 mg/dL (74-106) H 01/07/24 06:40 Vancomycin Trough 18.7 ug/mL (5.0-15.0) H 01/07/24 22:28 Microbiology Microbiology: Microbiology 01/07/24 08:30 Nasal Secretion MRSA (PCR) - Final 01/06/24 22:52 Urine, Clean Catch Legionella Antigen - Final 01/06/24 22:52 Urine, Clean Catch Streptococcus pneumoniae Antigen (M - Final Dosing Weight Weight used for dosin.2 kg Estimated Creatinine Clearance Estimated Creatinine Clearance: 120 Goal Trough Goal Trough: 15-20 mcg/mL Pharmacy Plan for Drug Dosing Pharmacy Plan for Drug Dosing: Vancomycin trough level of 18.7, drawn 7hrs post-dose, was within the target range of 15-20. Will continue dosing at 1250mg q8h, and will re-draw a trough level in two days. Pharmacy Service will continue to monitor and adjust dosing as required. Follow-Up Labs Follow-Up Labs: Trough: Vancomycin Date/Time Labs Ordered Labs to be done on [date and time ordered]: 01/09/24 @2406
[2024-01-08 04:00] VITALS: BP 134/92; PULSE 85; RESP 18; TEMP 36.9; O2SAT 98
[2024-01-08] MEDS: Ampicillin/Sulbactam 3 GM in 0.9% Normal Saline (100mL MB+) 100 ML IV (04:47)
[2024-01-08] MEDS: Vancomycin HCl 1,250 MG in 0.9% Normal Saline (250mL Bag) 250 ML 167 MG IV (05:52)
[2024-01-08 06:47] LABS: Absolute Neutrophil Count 8.2 X10^3/uL (2.0-7.7); Basophil# 0.06 X10^3/uL; Basophil% 0.5 % (0-1); Eosinophil# 0.27 X10^3/uL; Eosinophils% 2.3 % (0-5); Hematocrit 30.9 % (40-54); Hemoglobin 10.4 g/dL (13.0-16.5); Lymphocyte % 17.4 % (19-41); Mean Corp Hgb Conc 33.7 g/dL (32-36); Mean Platelet Vol. 8.6 fl (6.2-12.0); Monocyte# 0.85 X10^3/uL; Monocyte% 7.4 % (0-10); NRBC Flagged by Analyzer 0 % (0-5); Neutrophil # 8.21 X10^3/uL (2.7-7.7); Neutrophil % 71.5 % (47-70); Platelet Count 445 K/mm3 (150-450); RBC Distribution Width SD 42.5 fl (35.1-43.9); Red Blood Count 3.47 M/mm3 (4.6-6.2); White Blood Count 11.5 K/mm3 (4.4-11.0)
[2024-01-08 07:21] VITALS: PULSE 99; RESP 18; O2SAT 95
[2024-01-08] MEDS: Ipratropium/Albuterol Sulfate 3 ML AMPUL.NEB INHALATION (07:21)
[2024-01-08 07:22] LABS: Anion Gap 6 (5-15); BUN 11 mg/dL (7-18); BUN/Creat Ratio 14.1 RATIO (10-20); Calcium,Total 8.5 mg/dL (8.5-10.1); Chloride 107 mmol/L (98-107); Creatinine, Serum 0.78 mg/dL (0.70-1.30); EST Glomerular Filtration Rate 110 mL/min (>60); Est Glom Filt Rate - Afr Amer 133 mL/min (>60); Glucose 110 mg/dL (74-106); Potassium 3.1 mmol/L (3.5-5.1); Sodium Level 139 mmol/L (136-145)
[2024-01-08 09:00] VITALS: BP 145/87; PULSE 100; RESP 16; TEMP 36.6; O2SAT 97
[2024-01-08] MEDS: Pantoprazole Sodium 20 MG Tablet PO (09:08)
[2024-01-08] MEDS: Losartan Potassium 100 MG Tablet PO (09:08)
[2024-01-08] MEDS: Enoxaparin 40 MG/0.4 ML Syringe SC (09:09)
[2024-01-08] MEDS: guaiFENesin 1,200 MG Tablet 1200 MG PO (09:09)
[2024-01-08] MEDS: hydroCHLOROthiazide 25 MG Tablet PO (09:09)
[2024-01-08] MEDS: Potassium Chloride Oral Tablet 20 MEQ 60 MEQ PO (09:14)
[2024-01-08] MEDS: FLU VACC 2024-25(6MOS UP)/PF 45 MCG/0.5 ML SYRINGE IM (09:14)
--- NOTE | 2024-01-08 10:14 | PCM.PN.ID ---
Physical Exam Narrative Feeling much better, no fever, no dyspnea, off O2, mild soft stool, no abd pain Const alert and no apparent distress General Appearance: cooperative Resp normal air movement and clear to auscultation bilaterally Cardio regular rate and regular rhythm GI soft to palpation, non-tender and non-distended Skin no rashes or lesions noted ID ID: Route of nutrition/ use of supplements: [] Nutritional Intake: [] IV Site: [] Cortez Catheter: [] Assessment & Plan Assessment/Plan (1) Abscess of right lung with pneumonia: PLAN: On vanc/unasyn. Will write for 1 month course po doxy and augmentin. Was on levaquin as outpt. Recommend repeat CT in 3 weeks. ID followup in 4 weeks. Will follow
--- NOTE | 2024-01-08 10:38 | DCINST_ITS ---
Discharge Instructions Diet Discharge Diet: No restrictions Activity Discharge Activity: Return to Normal Activity Follow Up Care Test Results: Test results from this visit will be discussed in further detail at your follow- up appointment, if applicable. Discharge Plan Admission Admit Date/Time: 01/06/24 18:53 Primary Reason for Your Visit: Lung abscess Attending Provider: Bree Wilson Primary Care Provider: Mendel Rashid Consulting Providers: Ronak Rodríguez; Jeff Haines; Kurt Soliz; Brian Hernández; Parviz Magaña; Ran Bates; Domingo Kuhn; Addie Mathis; Karthik Rodriguez; Hal Moser; Sondra Leyva; Moo Larsen; Genaro Berman; Daryl Ramírez; Nikhil Wilkins; Jayro Stauffer; Jonnie Cummings; Jose Hawkins; Tom Finney; Steve Sun; Joey Trejo; Emi Fuller NP; Yamileth Valerio; Roque Davalos; Ayah Velasco Instructions Patient Instructions: ED Pneumonia (Adult) Additional Instructions / Restrictions: DISCHARGE INSTRUCTIONS PLEASE READ *Please take this with you to your next doctors appointment* -You will be discharged on Augmentin 875 mg twice daily and doxycycline 100 mg twice daily for 1 month -Please follow-up with Dr. Davalos with infectious disease in 4 weeks. Please call their office to schedule hospital follow-up appointment upon discharge. -You will need repeat imaging of your lungs in 3 weeks, this can be coordinated through your primary care office or pulmonology. Please contact their office to inquire about scheduling -Please follow-up with pulmonology upon discharge. Please call their office to schedule hospital follow-up appointment upon discharge. -You will be discharged on 20 mg of potassium daily due to persistently low potassium. Would recommend lab work (BMP) to check your potassium in 2 to 3 days through your primary care physician's office. Please call their office upon discharge to obtain order for lab work. -If your potassium remains low your hydrochlorothiazide may need to be discontinued and substituted for a different medication -Please call your primary care provider's office upon discharge to schedule a hospital follow up within 1 week. -For any concerning signs or symptoms please call 911 or proceed to the nearest emergency department Discharge Orders/Prescriptions Prescriptions: New doxycycline hyclate 100 mg capsule 100 mg PO BID Qty: 60 0RF amoxicillin-pot clavulanate 875-125 mg tablet 1 tab PO BID Qty: 60 0RF potassium chloride 20 mEq tablet extended release 20 meq PO DAILY Qty: 30 0RF Continued omeprazole 20 MG capsule 20 mg PO DAILY valsartan-hydrochlorothiazide 320-25 mg tablet 1 tab PO DAILY hydrochlorothiazide 25 mg tablet 25 mg PO DAILY Referrals / Follow Up: Mendel Rashid MD [Primary Care Provider] - Within 1 Week Brian Hernández DO [Med Staff - Active Staff] - (-Please follow-up with pulmonology upon discharge. Please call their office to schedule hospital follow-up appointment upon discharge.) Roque Davalos MD [Med Staff - Active Staff] - Within 1 Month Disposition Disposition (needs filled in before D/C Order can be placed): Home, Self Care
--- NOTE | 2024-01-08 10:41 | DS.PCM_ITS ---
Providers Date of Admission: 01/06/24 Date of Discharge: 01/08/24 Primary Care Physician: Dr. Mendel Rashid MD Consultations 01/06/24 20:41 Consult: Infectious Disease Routine Consulting Provider: Roque Davalos Reason for Consult: Pulmonary abscess EMERGENT Consult: No Notified: Yes Date Notified: 01/07/24 Time Notified: 06:51 Method of Notification: Text Consult: [employer] Supervisor / Pulmonary Medicine Routine Consulting Provider: Pulmonary Medicine [facility] Reason for Consult: Pulmonary abscess EMERGENT Consult: No Notified: Yes Date Notified: 01/06/24 Time Notified: 18:57 Method of Notification: Verbal Reason For Visit: RUL PNA WITH LUNG ABSCESS Diagnosis Discharge Diagnosis (1) Abscess of right lung with pneumonia: Status: Acute Code(s): J85.1 - Abscess of lung with pneumonia Plan #RUL pneumonia with abscess #GERD #Hypertension #MONTEZ #Hypokalemia Medications at Discharge Home Medications omeprazole 20 mg capsule,delayed release 20 mg PO DAILY gerd 11/23/15 hydrochlorothiazide 25 mg tablet 25 mg PO DAILY bp 01/06/24 valsartan 320 mg-hydrochlorothiazide 25 mg tablet 1 tab PO DAILY bp 01/06/24 amoxicillin 875 mg-potassium clavulanate 125 mg tablet 1 tab PO BID #60 tabs 01/08/24 doxycycline hyclate 100 mg capsule 100 mg PO BID #60 caps 01/08/24 potassium chloride 20 mEq tablet,extended release 20 meq PO DAILY #30 tabs 01/08/24 Hospital Course Summary of Care Provided Minutes Spent on Discharge: 25 Hospital Course: 53-year-old male history of GERD, MONTEZ noncompliant with CPAP, and hypertension presented [facility] ED 01/06/[address] of the chest. He felt poorly roughly a month ago and saw his primary care doc about 7 to 10 days after symptoms. Initially was felt it might be a virus however he developed productive cough so he went back and saw Carmenza Mcnally NP at [facility] and was placed on Levaquin for 10 days and completed his course on Friday. Had initial CT scan December 23 which showed right upper lobe infiltrate and after his antibiotics he had repeat imaging which demonstrated a distinct right upper lobe abscess reportedly 7 cm with significant air-fluid level that was not there on 12/23. He was advised to come to the hospital for admission for antibiotics. Patient admitted and started on broad-spectrum antibiotics and pulmonology and infectious disease consulted. Patient had antibiotics adjusted by infectious disease with plan to discharge on prolonged course of p.o. doxycycline and Augmentin and pulmonology recommended outpatient pulm follow-up and both recommended repeat chest imaging at the end of or shortly after his antibiotics completed. During his hospitalization overall he felt well and reported his cough had improved and he had overall improved. On day of discharge patient vitally stable with no new or acute complaints. Did have his potassium replaced but otherwise no significant lab abnormalities. Discharge instructions as follows: DISCHARGE INSTRUCTIONS PLEASE READ *Please take this with you to your next doctors appointment* -You will be discharged on Augmentin 875 mg twice daily and doxycycline 100 mg twice daily for 1 month -Please follow-up with Dr. Davalos with infectious disease in 4 weeks. Please call their office to schedule hospital follow-up appointment upon discharge. -You will need repeat imaging of your lungs in 3 weeks, this can be coordinated through your primary care office or pulmonology. Please contact their office to inquire about scheduling -Please follow-up with pulmonology upon discharge. Please call their office to schedule hospital follow-up appointment upon discharge. -You will be discharged on 20 mg of potassium daily due to persistently low potassium. Would recommend lab work (BMP) to check your potassium in 2 to 3 days through your primary care physician's office. Please call their office upon discharge to obtain order for lab work. -If your potassium remains low your hydrochlorothiazide may need to be discontinued and substituted for a different medication -Please call your primary care provider's office upon discharge to schedule a hospital follow up within 1 week. -For any concerning signs or symptoms please call 911 or proceed to the nearest emergency department Physical Exam Narrative General: Alert, oriented, no apparent distress HEENT: Atraumatic, normocephalic Eyes: Anicteric, normal conjunctiva, extraocular movements grossly intact Neck: Supple Respiratory: Clear to auscultation bilaterally, normal respiratory effort Cardiovascular: Regular rate and rhythm GI: Soft, nontender, nondistended Extremities: No edema Musculoskeletal: Moving all extremities Neuro: No overt focal neurological deficits Skin: No rashes appreciated Psych: Cooperative Weight / BMI Weight Weight: 98.2 kg Body Mass Index (BMI) 31.0 ABG / Lab / Microbiology Data 01/08/24 06:05 01/08/24 06:05 Laboratory: Laboratory Results - last 24 hr 01/07/24 22:28: Vancomycin Trough 18.7 H 01/08/24 06:05: WBC 11.5 H, RBC 3.47 L, Hgb 10.4 L, Hct 30.9 L, MCV 89.0, MCH 30.0, MCHC 33.7, RDW Std Deviation 42.5, RDW Coeff of [place] 13.0, Plt Count 445, MPV 8.6, Immature Gran % (Auto) 0.900, Neut % (Auto) 71.5 H, Lymph % (Auto) 17.4 L, Hunt % (Auto) 7.4, Eos % (Auto) 2.3, Baso % (Auto) 0.5, Absolute Neuts (auto) 8.2 H, Absolute Lymphs (auto) 2.00, Nucleated RBC % 0, Sodium 139, Potassium 3.1 L, Chloride 107, Carbon Dioxide 26.0, Anion Gap 6, BUN 11, Creatinine 0.78, Estim Creat Clear Calc 128.70, Est GFR (MDRD) Af Amer 133, Est GFR (MDRD) Non-Af 110, BUN/Creatinine Ratio 14.1, Glucose 110 H, Calcium 8.5 Microbiology: Microbiology 01/07/24 08:30 Nasal Secretion MRSA (PCR) - Final 01/06/24 22:52 Urine, Clean Catch Legionella Antigen - Final 01/06/24 22:52 Urine, Clean Catch Streptococcus pneumoniae Antigen (M - Final D/C Instructions Discharge Diet: No restrictions DC O2, CPAP, BIPAP Needs Additional Home O2 Discharge instructions: No DC home with Oxygen: No Meaningful Use Info Meaningful Use Meaningful Use Diagnoses (Choose all that apply): None applicable Ischemic Stroke Statin Dosing Therapy Reference: STATIN DOSE THERAPY REFERENCE: * Patients > 75 years receive moderate or high dose statin therapy. * Patients 75 years or YOUNGER should receive HIGH intensity statin dose unless contraindicated. You will be required to document reason for non-treatment if statin daily dose does not meet guidelines. HIGH DOSE STATIN THERAPY DAILY Atorvastatin > than or = to 40 mg Rosuvastatin > than or = to 20 mg Amlodipine + Atorvastatin > than or = to 2.5/40 mg Ezetimibe + Simvastatin 10/80 mg Simvastatin 80mg Discharge Plan Admission Admit Date/Time: 01/06/24 18:53 Primary Reason for Your Visit: Lung abscess Attending Provider: Bree Wilson Primary Care Provider: Mendel Rashid Consulting Providers: Ronak Rodríguez; Jeff Haines; Kurt Soliz; Brian Hernández; Parviz Magaña; Ran Bates; Domingo Kuhn; Addie Mathis; Karthik Rodriguez; Hal Moser; Sondra Leyva; Moo Larsen; Cullen,Genaro; Daryl Ramírez; Franky,Nikhil; Eh,Jayro; Jonnie Cummings; Jose Hawkins; Tom Finney; Steve Sun; Joey Trejo; Emi Fuller NP; Yamileth Valerio; Roque Davalos; Ayah Velasco Instructions Patient Instructions: ED Pneumonia (Adult) Additional Instructions / Restrictions: DISCHARGE INSTRUCTIONS PLEASE READ *Please take this with you to your next doctors appointment* -You will be discharged on Augmentin 875 mg twice daily and doxycycline 100 mg twice daily for 1 month -Please follow-up with Dr. Davalos with infectious disease in 4 weeks. Please call their office to schedule hospital follow-up appointment upon discharge. -You will need repeat imaging of your lungs in 3 weeks, this can be coordinated through your primary care office or pulmonology. Please contact their office to inquire about scheduling -Please follow-up with pulmonology upon discharge. Please call their office to schedule hospital follow-up appointment upon discharge. -You will be discharged on 20 mg of potassium daily due to persistently low potassium. Would recommend lab work (BMP) to check your potassium in 2 to 3 days through your primary care physician's office. Please call their office upon discharge to obtain order for lab work. -If your potassium remains low your hydrochlorothiazide may need to be discontinued and substituted for a different medication -Please call your primary care provider's office upon discharge to schedule a hospital follow up within 1 week. -For any concerning signs or symptoms please call 911 or proceed to the nearest emergency department Discharge Orders/Prescriptions Prescriptions: New doxycycline hyclate 100 mg capsule 100 mg PO BID Qty: 60 0RF amoxicillin-pot clavulanate 875-125 mg tablet 1 tab PO BID Qty: 60 0RF potassium chloride 20 mEq tablet extended release 20 meq PO DAILY Qty: 30 0RF Continued omeprazole 20 MG capsule 20 mg PO DAILY valsartan-hydrochlorothiazide 320-25 mg tablet 1 tab PO DAILY hydrochlorothiazide 25 mg tablet 25 mg PO DAILY Referrals / Follow Up: Mendel Rashid MD [Primary Care Provider] - Within 1 Week Brian Hernández DO [Med Staff - Active Staff] - (-Please follow-up with pulmonology upon discharge. Please call their office to schedule hospital follow-up appointment upon discharge.) Roque Davalos MD [Med Staff - Active Staff] - Within 1 Month Disposition Disposition (needs filled in before D/C Order can be placed): Home, Self Care Charges/Coding Visit Charges Inpatient E&M: 43685 Disch Hosp
== END 2024-01-08 11:24 | disposition home or self-care (01) | DRG 179 ==
LOC: ED 18:55 → MS3 19:45
PROVIDERS: Admitting Provider Internal Medicine; Emergency Provider Emergency Medicine; PCP Family Medicine; Visit Provider Internal Medicine
DX: J85.1 Abscess of lung with pneumonia (principal); E66.9 Obesity, unspecified; I10 Essential (primary) hypertension; K21.9 Gastro-esophageal reflux disease without esophagitis; E87.6 Hypokalemia; G47.33 Obstructive sleep apnea (adult) (pediatric); Z87.891 Personal history of nicotine dependence; Z68.31 Body mass index [BMI] 31.0-31.9, adult; Z79.891 Long term (current) use of opiate analgesic; Z99.89 Dependence on other enabling machines and devices; Z87.442 Personal history of urinary calculi
CPT/HCPCS: 36415; 71046; 80048; 80053; 80202; 83735; 84100; 85025; 86703; 87040; 87449; 87641; 90656; 94640; 94667; 94668; 99285; J7040; J7050; A4216; J0295